=== PATIENT | male | born 1980 | race Two or more races ===

== ENCOUNTER 2024-12-21 04:52 | Inpatient (IN) | payer MEDICAID, OTHER ==
[~2024-12-21] VITALS: Ht 162.6 cm; Wt 87.3 kg
--- NOTE | 2024-12-21 05:21 | ED.PDOC ---
Altered Mental Status HPI Comments 44 year old male brought in by EMS presents to the ED with a chief complaint of ALOC onset today. Per EMS, patient was found hugging a pole by sandrine lepe and [facility] Upon EMS arrival, was on scene, patient seemed altered and was only oriented to person and . It is unknown how long the patient was outside. Patient was not sure how he got there, where he was, and was very cold to touch. BP was 132/82, BS132, HR 102, O2 sat 97% on RA. He denies any chest pain, shortness of breath, headache, blurry vision, nausea, vomiting, diarrhea. No other symptoms or modifying factors present at this time. Chief Complaint: ALOC Time Seen by MD: 05:12 Reviewed Notes: Medications, Allergies Allergies: Coded Allergies: NO KNOWN ALLERGIES (Unverified , 12/21/24) Information Source: Emergency Med Personnel Mode of Arrival: EMS Severity: Moderate Timing: Hours Duration: Since onset Prehospital treatment: None Quality: Confusion, Memory Loss Recent: None History of: None Associated Signs and Symptoms: None Past Medical History PAST MEDICAL HISTORY: Unknown Surgical History: Unknown Family History Family History: Unknown Social History Smoker: Unknown Alcohol: Unknown Drugs: Unknown Lives In: Homeless Constitutional: denies: chills, diaphoresis, fatigue, fever, malaise, sweats, weakness, others EENTM: denies: blurred vision, double vision, ear bleeding, ear discharge, ear drainage, ear pain, ear ringing, eye pain, eye redness, hearing loss, mouth pain, mouth swelling, nasal discharge, nose bleeding, nose congestion, nose pain, photophobia, tearing, throat pain, throat swelling, voice changes, others Respiratory: denies: cough, hemoptysis, orthopnea, SOB at rest, shortness of breath, SOB with excertion, stridor, wheezing, others Cardiovascular: denies: chest pain, dizzy spells, diaphoresis, Dyspnea on exertion, edema, irregular heart beat, left arm pain, lightheadedness, pa lpitations, PND, syncope, others Gastrointestinal: denies: abdomen distended, abdominal pain, blood streaked bowels, constipated, diarrhea, dysphagia, difficulty swallowing, hematemesis, melena, nausea, poor appetite, poor fluid intake, rectal bleeding, rectal pain, vomiting, others Genitourinary: denies: burning, dysuria, flank pain, frequency, hematuria, incontinence, penile discharge, penile sore, pain, testicle pain, testicle swelling, urgency, others Neurological: denies: dizziness, fainting, headache, left sided numbness, left sided weakness, numbness, paresthesia, pre-existing deficit, right sided numbness, right sided weakness, seizure, speech problems, tingling, tremors, weakness, others Musculoskeletal: denies: back pain, gout, joint pain, joint swelling, muscle pain, muscle stiffness, neck pain, others Integumetry: reports: others (cool to touch); denies: bruises, change in color, change in hair/nails, dryness, laceration, lesions, lumps, rash, wounds Allergic/Immunocompromised: denies: Difficulty Healing, Frequent Infections, Hives, Itching, others Hematologic/Lymphatic: denies: anemia, blood clots, easy bleeding, easy bruising, swollen glands, others Endocrine: denies: excessive hunger, excessive sweating, excessive thirst, excessive urination, flushing, intolerance to cold, intolerance to heat, unexplained weight gain, unexplained weight loss, others Psychiatric: denies: anxiety, bipolar disorder, depression, hopeless, panic disorder, schizophrenia, sleepless, suicidal, others Unable to Obtain due to: Altered Mental Status All Other Systems: Reviewed and Negative Physical Exam General Appearance: No Apparent Distress, Normal HEENT: Normal ENT Inspection, Pharynx Normal, TMs Normal Neck: Full Range of Motion, Non-Tender, Normal, Normal Inspection Respiratory: Chest Non-Tender, Lungs Clear, No Accessory Muscle Use, No Respiratory Distress, Normal Breath Sounds Cardiovascular: No Edema, No JVD, No Murmur, No Gallop, Normal Peripheral Pulses, Regular Rate/Rhythm Breast Exam: Deferred Gastrointestinal: No Organomegaly, Non Tender, No Pulsatile Mass, Normal Bowel Sounds, Soft Genitalia: Deferred Pelvic: Deferred Rectal: Deferred Extremities: No calf tenderness, Normal capillary refill, Normal inspection, Normal range of motion, Non-tender, No pedal edema Musculoskeletal : Apperance: Normal Neurologic: Alert, sba business development officer II-XII nml as Tested, No Motor Deficits, Normal Affect, Normal Mood, No Sensory Deficits Cerebellar Function: Normal Reflexes: Normal Skin: Dry, Normal Color, Warm Lymphatic: No Adenopathy Was a procedure done? Was a procedure done?: No Differential Diagnosis (ALOC) Differential Diagnosis: Hypoglycemia, Hypoxemia, Seizure, CVA, Mass Lesion X-Ray, Labs, Meds, VS Vital Signs Date Time Temp Pulse Resp B/P (MAP) Pulse Ox O2 Delivery O2 Flow Rate FiO2 12/21/24 08:00 72 16 131/79 (96) 95 12/21/24 07:30 69 16 95 Room Air* 0 21 12/21/24 07:30 98.0 69 16 130/78 (95) 95 98.0 12/21/24 06:00 98.1 69 15 130/78 (95) 94 98.1 12/21/24 05:03 98.0 110 14 153/100 (117) 97 Lab Test 12/21/24 05:48 Range/Units White Blood Count 9.9 4.4-10.8 10^3/uL Red Blood Count 4.15 L 4.5-5.90 10^6/uL Hemoglobin 12.0 L 13.5-17.5 g/dL Hematocrit 35.5 L 41.0-53.0 % Mean Corpuscular Volume 85.7 80.0-100.0 fL Mean Corpuscular Hemoglobin 28.9 28.0-32.0 pg Mean Corpuscular Hemoglobin Concent 33.7 32.0-36.0 g/dL Red Cell Distribution Width 18.9 H 11.8-14.3 % Platelet Count 282 140-450 10^3/uL Mean Platelet Volume 7.8 6.9-10.8 fL Neutrophils (%) (Auto) 89.1 H 37.0-80.0 % Lymphocytes (%) (Auto) 6.2 L 10.0-50.0 % Monocytes (%) (Auto) 4.4 0.0-12.0 % Eosinophils (%) (Auto) 0.2 0.0-7.0 % Basophils (%) (Auto) 0.1 0.0-2.0 % Neutrophils # (Auto) 8.8 H 1.6-8.6 10 ^3/uL Lymphocytes # (Auto) 0.6 0.4-5.4 10 ^3/uL Monocytes # (Auto) 0.4 0-1.3 10 ^3/uL Eosinophils # (Auto) 0 0-0.8 10 ^3/uL Basophils # (Auto) 0 0-0.2 10 ^3/uL Nucleated Red Blood Cells 0.0 % Sodium Level 139 136-145 mmol/L Potassium Level 4.2 3.5-5.1 mmol/L Chloride Level 105 98-107 mmol/L Carbon Dioxide Level 25 20-31 mmol/L Anion Gap 9 5-15 Blood Urea Nitrogen 35 H 9-23 mg/dL Creatinine 1.89 H 0.700-1.30 mg/dL Glomerular Filtration Rate Calc 44 >90 mL/min BUN/Creatinine Ratio 18.5 10.0-20.0 Serum Glucose 87 74-106 mg/dL Lactic Acid Level 1.9 0.4-2.0 mmol/L Calcium Level 9.6 8.7-10.4 mg/dL Total Bilirubin 0.5 0.2-1.0 mg/dL Aspartate Amino Transferase (AST) 23 13-40 U/L Alanine Aminotransferase (ALT) 28 7-40 U/L Alkaline Phosphatase 87 46-116 U/L Troponin I High Sensitivity 13 </=54 ng/L Total Protein 7.6 5.7-8.2 g/dL Albumin 4.6 3.2-4.8 g/dL Thyroid Stimulating Hormone (TSH) 4.55 0.55-4.78 uIU/mL Plasma/Serum Blood Alcohol < 3.0 <10 mg/dL Time of 1ST Reevaluation: 05:42 Reevaluation 1ST: Unchanged Patient Education/Counseling: Diagnosis, Treatment, Prognosis Family Education/Counseling: No Family Present Additional Information The following tests were ordered, and results were reviewed by me: CBC, CMP, TROP, LA W/ REFLEX, DRUG SCREEN, UA, XY CHEST, CT HEAD WITHOUT CONTRAST, BLOOD ALCOHOL Additional Information was gathered from interviewing the following independent historians: EMS I reviewed and agreed with the following test results read by other providers: XY CHEST, CT HEAD WITHOUT CONTRAST I discussed treatment and results with medical personnel and patient Departure 1 Departure Time of Disposition: 05:51 (Patient with altered mental status. We will check labs CT scan admit patient) Impression: Primary Impression: Metabolic encephalopathy Disposition: ADMITTED INPATIENT Admit to: Med Surg Condition: Serious Critical Care Note Critical Care Time?: No Stability Stability form required: No I personally scribed for MADHURI POWELL MD ([email or web address]) on 12/21/24 at 05:21. Electronically submitted by Rosa Monk ([email or web address]). I personally scribed for MADHURI POWELL MD ([email or web address]) on 12/21/24 at 05:23. Electronically submitted by Rosa Monk ([email or web address]). MADHURI POWELL MD Dec 21, 2024 05:21
[2024-12-21 06:17] LABS: Basophils # (auto) 0 10 ^3/uL (0-0.2); Basophils % (auto) 0.1 % (0.0-2.0); Eosinophils # (auto) 0 10 ^3/uL (0-0.8); Eosinophils % (auto) 0.2 % (0.0-7.0); Hematocrit 35.5 % (41.0-53.0); Lymphocytes # (auto) 0.6 10 ^3/uL (0.4-5.4); Lymphocytes % (auto) 6.2 % (10.0-50.0); Mean Corpuscular Hemoglobin 28.9 pg (28.0-32.0); Mean Corpuscular Hgb Conc. 33.7 g/dL (32.0-36.0); Mean Corpuscular Volume 85.7 fL (80.0-100.0); Monocytes # (auto) 0.4 10 ^3/uL (0-1.3); Monocytes % (auto) 4.4 % (0.0-12.0); Neutrophils # (auto) 8.8 10 ^3/uL (1.6-8.6); Neutrophils % (auto) 89.1 % (37.0-80.0); Platelet Count (auto) 282 10^3/uL (140-450); Red Blood Cells 4.15 10^6/uL (4.5-5.90); Red Cell Distribution Width 18.9 % (11.8-14.3); White Blood Cell 9.9 10^3/uL (4.4-10.8)
[2024-12-21 06:35] LABS: Alanine Aminotransferase 28 U/L (7-40); Alkaline Phosphatase 87 U/L (46-116); Anion Gap 9 (5-15); Aspartate Aminotransferase 23 U/L (13-40); BUN/Creatinine Ratio 18.5 (10.0-20.0); Calcium 9.6 mg/dL (8.7-10.4); Carbon Dioxide 25 mmol/L (20-31); Chloride 105 mmol/L (98-107); Glucose 87 mg/dL (74-106); Potassium 4.2 mmol/L (3.5-5.1); Sodium 139 mmol/L (136-145)
[2024-12-21 06:36] LABS: Albumin 4.6 g/dL (3.2-4.8); Bilirubin, Total 0.5 mg/dL (0.2-1.0); Blood Alcohol < 3.0 mg/dL (<10); Blood Urea Nitrogen 35 mg/dL (9-23); Total Protein 7.6 g/dL (5.7-8.2)
--- NOTE | 2024-12-21 06:53 | DVH ---
EXAM: CT HEAD WITHOUT CONTRAST INDICATION: ams TECHNIQUE: CT of the head without intravenous contrast. Coronal and sagittal reformatted images are submitted. Radiation Dose : 1. Head: CT Dose: CTDI volume is 63.96 mGy. Dose-length product is 1082.64 mGy*cm The dose indicators for CT are the volume Computed Tomography (CT) Dose Index (CTDIvol) and the Dose Length Product (DLP), and are measured in units of mGy and mGy-cm, respectively. These indicators are not patient dose, but values generated from the CT scanner acquisition factors. The report includes radiation exposure data for exposures received during this examination. All CT scans at this medical facility are performed using dose modulation techniques as appropriate to a performed exam including the following: Automated exposure control was utilized; adjustment of the MA and/or KV according to patient size; and use of iterative reconstruction technique. COMPARISON: None FINDINGS: There is no evidence of acute intracranial hemorrhage, extra-axial collection, mass effect, midline s hift, herniation or hydrocephalus. There are periventricular and subcortical hypodensities, nonspecific, but likely reflecting sequelae of chronic microvascular ischemic changes. Chronic subcortical infarct in the deep frontal lobe periv entricular white matter. Chronic left basal ganglia infarct. The ventricles, sulci and cisterns are age appropriate. The olivares-white differentiation is intact. The visualized paranasal sinuses and mastoid air cells are clear. No depressed calvarial fracture. The surrounding soft tissues are unremarkable. IMPRESSION: 1. No evidence of acute intracranial abnormality.
--- NOTE | 2024-12-21 06:55 | DVH ---
CHEST RADIOGRAPH Indication: ams Technique: Single frontal view of the chest was obtained Comparison: None FINDINGS: Lines and Tubes: None Lungs: No focal consolidation. Pleura: No effusion. No pneumothorax. Cardiomediastinal contours: Unremarkable Bones: No acute osseous abnormality. IMPRESSION: 1. No acute cardiopulmonary disease.
[2024-12-21 07:30] VITALS: PULSE 69; RESP 16; O2SAT 95
[2024-12-21] MEDS ORDERED: ONDANSETRON HCL 4 MG/2 ML VIAL IV PRN (09:30)
[2024-12-21] MEDS ORDERED: NITROGLYCERIN 0.4 MG SL TAB SL PRN (09:30)
[2024-12-21] MEDS ORDERED: MORPHINE SULFATE INJ 2 MG/ml SYRG IV PRN (09:30)
[2024-12-21] MEDS ORDERED: DOCUSATE SOD 100 MG CAP PO PRN (09:30)
[2024-12-21] MEDS: SODIUM CHLORIDE 0.9% 1,000 ML IV ONE (09:59)
[2024-12-21] MEDS: ENOXAPARIN SOD 40 MG/0.4 ML SYRINGE SC SCH (10:55)
--- NOTE | 2024-12-21 18:52 | DVHHP2 ---
History of Present Illness Reason for Visit: Confusion History of Present Illness 44-year-old male past medical history per nursing got information from family member who is at the bedside they stated he was at his baseline mental state on my morning exam but they state he has a history HIV kidney problems heart problems they are not really sure with the diagnosis of those issues are in no surgical history according to the ED records patient was found altered outside hugging pull by [facility] of saw him and brought him in because they felt he was altered he was outside in his diaper. According to the family patient lives in a friend's home and a room and some how he got out and he was found in his streets in his diaper in his showed on. According to the family patient is at his baseline when they speaking with him. They states he pretty much his stares in space and he was not able to answer questions appropriately. They states he got in this state mental illness because he has HIV. And chronic meth use They state he is only alert to name. On my exam patient states he do not remember what happened to provider then he is stares in space. When evaluating patient's labs and imaging hemoglobin was 12.0 35 point five creatinine is slightly elevated at 1.89 and 35 troponin was negative alcohol level was negative chest x-ray was normal CT scan of the brain was normal. With these findings we will admit patient we will ask social and human services assistant for assistance with discharge planning. Since patient was found wandering he might need to go in a different location for his safety. Unsure if patient has been taking medication for his HIV family could not provide that information Past Medical History HIV unknown how long patient had illness know if he is taking his medication family unsure kidney problems and heart problems do not know the full diagnosis of his medical problems per family Past Surgical History Denies surgical history per family Family History Unable to assess due to current mental status Past Social History Unable to assess due to current mental status but patient does a history of meth abuse Review of Systems Review of Systems Unable to assess ROS due to current mental status Allergies: Coded Allergies: NO KNOWN ALLERGIES (Unverified , 12/21/24) Medications Current Medications Medications Dose Ordered Sig/Willem Route Start Time Stop Time Status Last Admin Dose Admin Ondansetron HCl 4 mg Q4HP PRN IV 12/21/24 09:30 Docusate Sodium 100 mg BIDPRN PRN PO 12/21/24 09:30 Enoxaparin Sodium 40 mg DAILY SC 12/21/24 10:00 12/21/24 10:55 40 MG Morphine Sulfate 2 mg Q4HPRN PRN IV 12/21/24 09:30 Nitroglycerin 0.4 mg Q5MINP PRN SL 12/21/24 09:30 Exam Vital Signs Vital Signs Date Time Temp Pulse Resp B/P (MAP) Pulse Ox O2 Delivery O2 Flow Rate FiO2 12/21/24 18:00 86 18 153/82 (105) 94 12/21/24 07:30 Room Air* 0 21 12/21/24 07:30 98.0 98.0 General Appearance: Alert, Other (Just to name) HEENT: Atraumatic, PERRLA, EOMI, Mucous membr. moist/pink Respiratory: Clear to auscultation, Normal air movement Cardiovascular: Regular rate, Normal S1, Normal S2, No murmurs Abdominal: Normal bowel sounds, Soft, No tenderness, No hepatospenomegaly, No m asses Extremities: No clubbing, No cyanosis, No edema, Normal pulses, No tenderness/swelling Skin: No rashes, No breakdown, No significant lesion Neuro: Other (Neuro nonfocal) Psych/Mental Status: Other (Flat affect on my exam) Labs/Xrays CT scan of the brain unremarkable Chest x-ray unremarkable I reviewed labs, imaging CT scan abdomen pelvis, EKG and all diagnostic studies on this patient from ED records and the medical chart Labs Test 12/21/24 10:00 12/21/24 05:48 Range/Units Mean Platelet Volume 7.8 6.9-10.8 fL Neutrophils # (Auto) 8.8 H 1.6-8.6 10 ^3/uL Lymphocytes # (Auto) 0.6 0.4-5.4 10 ^3/uL Monocytes # (Auto) 0.4 0-1.3 10 ^3/uL Eosinophils # (Auto) 0 0-0.8 10 ^3/uL Basophils # (Auto) 0 0-0.2 10 ^3/uL Sodium Level 139 136-145 mmol/L Potassium Level 4.2 3.5-5.1 mmol/L Chloride Level 105 98-107 mmol/L Carbon Dioxide Level 25 20-31 mmol/L Anion Gap 9 5-15 Blood Urea Nitrogen 35 H 9-23 mg/dL Creatinine 1.89 H 0.700-1.30 mg/dL Glomerular Filtration Rate Calc 44 >90 mL/min BUN/Creatinine Ratio 18.5 10.0-20.0 Serum Glucose 87 74-106 mg/dL Lactic Acid Level 1.9 0.4-2.0 mmol/L Calcium Level 9.6 8.7-10.4 mg/dL Total Bilirubin 0.5 0.2-1.0 mg/dL Aspartate Amino Transferase (AST) 23 13-40 U/L Alanine Aminotransferase (ALT) 28 7-40 U/L Alkaline Phosphatase 87 46-116 U/L Troponin I High Sensitivity 13 </=54 ng/L Total Protein 7.6 5.7-8.2 g/dL Albumin 4.6 3.2-4.8 g/dL Thyroid Stimulating Hormone (TSH) 4.55 0.55-4.78 uIU/mL Plasma/Serum Blood Alcohol < 3.0 <10 mg/dL Assessment/Plan Assessment/Plan Acute metabolic versus toxic encephalopathy per family at baseline only alert to self due to chronic meth use in the past that caused mental declined CT scan of the brain unremarkable Chest x-ray unremarkable Order UA, UDS, TSH, RPR Alcohol level normal Patient has a history HIV so order CD4 count follow up results We will need social and human services assistant to assist with discharge planning possibly we will need a safer location on discharge since patient was found wandering the streets Chronic HIV unknown history about his illness he is currently on medication Order CD4 count follow up results Can consider ID consult No fever so no need for further workup for meningitis Chronic problems Kidney problems likely chronic CKD order IV hydration 1 L Heart problems troponin found to be negative EKG no STEMI fen/ppx Diet for now IV fluids No GI prophylaxis since no history occurs or GI bleed SCDs Lovenox Plan we will admit to medicine ask for social and human services assistant for assistance with discharge planning, patient currently not safe for discharge Plan discussed with: Other (Information taken from nursing in the ED records) My Orders Orders - BILL THOMSON DNP Procedure Category Date Status Time Admit ADMIT 12/21/24 Transmitted 09:25 Allergies LAXMI 12/21/24 In Process 09:25 Code Status CODE 12/21/24 Transmitted 09:25 Ondansetron Hcl PHA 12/21/24 In Process (Zofran) 09:30 Docusate Sodium PHA 12/21/24 In Process Capsule (Colace 09:30 Enoxaparin Sodium PHA 12/21/24 In Process (Lovenox) 10:00 Complete Blood Count LAB 12/22/24 Verified 04:00 Comprehensive LAB 12/22/24 Verified Metabolic Panel 04:00 Cardiac DIET 12/21/24 Transmitted Diet-2gna,Lofat,Lochol Breakfast Condition: Stable LAXMI 12/21/24 In Process 09:25 BRP LAXMI 12/21/24 In Process 09:25 Morphine Sulfate PHA 12/21/24 In Process Injection 09:30 Sequential LAXMI 12/21/24 In Process Compression Device Nitroglycerin PHA 12/21/24 In Process Sublingual (Ntrostat 09:30 Stat Ekg For Chest LAXMI 12/21/24 In Process Pain 09:25 Notify Of Changes LAXMI 12/21/24 In Process From Base 09:25 Retail Route Supervisor For LAXMI 12/21/24 In Process 24 Hours 09:25 Emergency Dysrhythmia LAXMI 12/21/24 In Process Protocol 09:25 Rhythm Strips Once LAXMI 12/21/24 In Process Every Shift 09:25 Oxygen By Nasal RT 12/21/24 Transmitted Cannula 09:25 Cd4/Cd8 Ratio Profile LAB 12/21/24 In Process 09:25 Urine Sodium LAB 12/21/24 Logged 09:25 Urine Creatinine LAB 12/21/24 Logged 09:25 RPR LAB 12/21/24 In Process 09:25 Date of Service: Dec 21, 2024 Billing Provider: BILL THOMSON DNP Common Visit Codes: [id number] INP/OBS CARE (HIGH) BILL THOMSON DNP Dec 21, 2024 18:52
[2024-12-21 19:40] VITALS: PULSE 75; RESP 15; O2SAT 95
[2024-12-22 06:12] LABS: Basophils # (auto) 0 10 ^3/uL (0-0.2); Basophils % (auto) 0.4 % (0.0-2.0); Eosinophils # (auto) 0.1 10 ^3/uL (0-0.8); Eosinophils % (auto) 1.9 % (0.0-7.0); Hematocrit 30.9 % (41.0-53.0); Hemoglobin 10.6 g/dL (13.5-17.5); Lymphocytes # (auto) 1.1 10 ^3/uL (0.4-5.4); Lymphocytes % (auto) 22.5 % (10.0-50.0); Mean Corpuscular Hemoglobin 29.5 pg (28.0-32.0); Mean Corpuscular Hgb Conc. 34.2 g/dL (32.0-36.0); Mean Corpuscular Volume 86.2 fL (80.0-100.0); Monocytes # (auto) 0.4 10 ^3/uL (0-1.3); Monocytes % (auto) 8.3 % (0.0-12.0); Neutrophils # (auto) 3.3 10 ^3/uL (1.6-8.6); Neutrophils % (auto) 66.9 % (37.0-80.0); Platelet Count (auto) 233 10^3/uL (140-450); Red Blood Cells 3.59 10^6/uL (4.5-5.90); White Blood Cell 4.9 10^3/uL (4.4-10.8)
[2024-12-22 06:38] LABS: Alanine Aminotransferase 23 U/L (7-40); Alkaline Phosphatase 76 U/L (46-116); Anion Gap 7 (5-15); BUN/Creatinine Ratio 16.4 (10.0-20.0); Calcium 9.2 mg/dL (8.7-10.4); Carbon Dioxide 25 mmol/L (20-31); Glucose 81 mg/dL (74-106); Potassium 3.7 mmol/L (3.5-5.1); Sodium 142 mmol/L (136-145)
[2024-12-22 06:39] LABS: Albumin 3.5 g/dL (3.2-4.8)
[2024-12-22 06:40] LABS: Aspartate Aminotransferase 43 U/L (13-40); Blood Urea Nitrogen 25 mg/dL (9-23); Chloride 110 mmol/L (98-107); Total Protein 6.2 g/dL (5.7-8.2)
[2024-12-22 07:06] LABS: Basos 0 % (Not Estab.); Eos 0 % (Not Estab.); Hemoglobin 11.7 g/dL (13.0-17.7); Immature Granulocytes (Abs) 0 x10E3/uL (0.0-0.1); Lymphs 14 % (Not Estab.); Lymphs (Absolute) 1.2 x10E3/uL (0.7-3.1); MCHC 32.5 g/dL (31.5-35.7); MCV 89 fL (79-97); Monocytes 6 % (Not Estab.); Monocytes (Absolute) 0.5 x10E3/uL (0.1-0.9); Neutrophils 80 % (Not Estab.); Neutrophils (Absolute) 6.8 x10E3/uL (1.4-7.0); Platelets 288 x10E3/uL (150-450); RBC 4.04 x10E6/uL (4.14-5.80); RDW 18.2 % (11.6-15.4); WBC 8.5 x10E3/uL (3.4-10.8)
[2024-12-22 10:10] VITALS: PULSE 75; RESP 19; O2SAT 97
--- NOTE | 2024-12-22 12:46 | DVHPN2 ---
Reviewed: Care Plan, H&P, Labs, Medications, Previous Orders, Radiology Changes from previous H/P or p: No Changes Objective Vitals Vital Signs Date Time Temp Pulse Resp B/P (MAP) Pulse Ox O2 Delivery O2 Flow Rate FiO2 12/22/24 12:08 97.6 69 13 153/91 (111) 98 97.6 12/22/24 10:10 Room Air* 0 21 Medications Current Medications Medications Dose Ordered Sig/Willem Route Start Time Stop Time Status Last Admin Dose Admin Ondansetron HCl 4 mg Q4HP PRN IV 12/21/24 09:30 Docusate Sodium 100 mg BIDPRN PRN PO 12/21/24 09:30 Enoxaparin Sodium 40 mg DAILY SC 12/21/24 10:00 12/22/24 07:53 40 MG Morphine Sulfate 2 mg Q4HPRN PRN IV 12/21/24 09:30 Nitroglycerin 0.4 mg Q5MINP PRN SL 12/21/24 09:30 Laboratory Results Laboratory Tests 12/22/24 05:41 Chemistry Test 12/22/24 05:41 Albumin 3.5 g/dL (3.2-4.8) Calcium Level 9.2 mg/dL (8.7-10.4) Total Protein 6.2 g/dL (5.7-8.2) LFT Test 12/22/24 05:41 Alanine Aminotransferase (ALT) 23 U/L (7-40) Alkaline Phosphatase 76 U/L (46-116) Aspartate Amino Transferase (AST) 43 U/L (13-40) H Total Bilirubin 1.0 mg/dL (0.2-1.0) Labs and/or images reviewed: Labs reviewed by me, Image(s) reviewed by me Assessment/Plan Assessment/Plan Acute metabolic encephalopathy unknown etiology CT head negative Acute dehydration: IV fluids History of methamphetamine abuse: We will check urine drug screen Blood alcohol level negative Questionable history of HIV Plan discussed with: Patient My Orders Orders - PATRICIA ARGUETA MD Procedure Category Date Status Time Drug Screen LAB 12/22/24 Transmitted 12:42 Communication Order ORDERS 12/22/24 Transmitted 12:42 NS PHA 12/22/24 Verified 12:45 Date of Service: Dec 22, 2024 Billing Provider: PATRICIA ARGUETA MD Common Visit Codes: [id number] INP/OBS CARE(HIGH) PATRICIA ARGUETA MD Dec 22, 2024 12:46
[2024-12-22 13:22] LABS: Urine Bacteria None Seen /hpf (None Seen)
[2024-12-22 13:55] LABS: Creatinine, Urine 131.41 mg/dL (30.0-125.0)
[2024-12-22 13:59] LABS: Urine Blood Negative /uL (Negative); Urine Clarity Clear (Clear); Urine Color Light-Yellow (Yellow); Urine Mucus FEW (None Seen); Urine Protein, UAD TRACE (Negative); Urine Specific Gravity 1.019 (1.001-1.035); Urine Squamous Epithelial Cell None Seen /hpf (<5); Urine Urobilinogen Normal (Negative); Urine WBC 2 /HPF (0-3); Urine pH 5.5 (5.0-9.0)
[2024-12-22 14:06] LABS: Amphetamine Screen, Urine Neg (NEGATIVE); Barbiturate Scree,Urine Neg (NEGATIVE); Benzodiazephine Screen, Urine Neg (NEGATIVE); Cannabinoid Screen, Urine Neg (NEGATIVE); Cocaine Screen, Urine Neg (NEGATIVE); Opiate Scree,Urine Neg (NEGATIVE); Phencyclidine Screen, Urine Neg (NEGATIVE)
[2024-12-22] MEDS: SODIUM CHLORIDE 0.9% 1,000 ML IV SCH (14:34)
[2024-12-22 16:06] LABS: % CD 4 Pos Lymph 36.6 % (30.8-58.5); % CD 8 Pos Lymph 26.4 % (12.0-35.5); Absolute CD 4 Helper 439 /uL (359-1519); CD4/CD8 Ratio 1.39 (0.92-3.72)
[2024-12-22 16:25] VITALS: BP 164/96; PULSE 69; RESP 18; TEMP 98.3; O2SAT 99
[2024-12-22 16:35] VITALS: BP 164/96; PULSE 65; RESP 18; TEMP 98.3; O2SAT 99
[2024-12-22] MEDS: hydrALAZINE HCL 20 MG/ML VL IV ONE (18:33)
[2024-12-22 19:08] VITALS: BP 146/94; PULSE 81
[2024-12-22 20:00] VITALS: PULSE 84; PULSE 86; RESP 19; O2SAT 97
[2024-12-22 21:00] VITALS: BP 139/91; PULSE 84; RESP 19; TEMP 99; O2SAT 97
[2024-12-23] VITALS (8 sets, daily range): BP systolic 135–160; BP diastolic 83–104; PULSE 64–80; RESP 16–19; TEMP 98.5–98.9; O2SAT 93–98
[2024-12-23] MEDS ORDERED: BICT1TAB4 PO (07:35)
[2024-12-23] MEDS ORDERED: ATEN-60 PO (07:35)
--- NOTE | 2024-12-23 09:50 | DVHPN2 ---
Reviewed: Care Plan, H&P, Labs, Medications, Previous Orders, Radiology Changes from previous H/P or p: No Changes Objective Vitals Vital Signs Date Time Temp Pulse Resp B/P (MAP) Pulse Ox O2 Delivery O2 Flow Rate FiO2 12/23/24 08:42 98.6 78 16 135/91 (106) 94 98.6 12/22/24 20:00 Room Air* 0 21 Intake/Output Intake and Output 12/23/24 07:00 Intake Total 800 ml Output Total 1400 ml Balance -600 ml Intake Oral 500 ml IV Total 300 ml Output Urine Total 1400 ml Medications Current Medications Medications Dose Ordered Sig/Willem Route Start Time Stop Time Status Last Admin Dose Admin Ondansetron HCl 4 mg Q4HP PRN IV 12/21/24 09:30 Docusate Sodium 100 mg BIDPRN PRN PO 12/21/24 09:30 Enoxaparin Sodium 40 mg DAILY SC 12/21/24 10:00 12/23/24 09:20 40 MG Morphine Sulfate 2 mg Q4HPRN PRN IV 12/21/24 09:30 Nitroglycerin 0.4 mg Q5MINP PRN SL 12/21/24 09:30 Sodium Chloride 1,000 ml @ 150 mls/hr Q6H40M IV 12/22/24 12:45 12/23/24 06:17 150 MLS/HR Laboratory Results Laboratory Tests 12/22/24 05:41 Urinalysis Test 12/22/24 12:11 Urine Color Light-yellow (Yellow) Urine Clarity Clear (Clear) Urine pH 5.5 (5.0-9.0) Urine Specific [place] 1.019 (1.001-1.035) Urine Protein Trace (Negative) H Urine Ketones Negative (Negative) Urine Blood Negative /uL (Negative) Urine Nitrite Negative (Negative) Urine Bilirubin Negative (Negative) Urine Urobilinogen Normal mg/dL (Negative) Urine Leukocyte Esterase Negative /uL (Negative) Urine RBC 24 /hpf (0 - 3) Urine Microscopic WBC 2 /HPF (0-3) Urine Squamous Epithelial Cells None seen /hpf (<5) Urine Uric Acid Crystals Mod /hpf (None Seen) Urine Bacteria None seen /hpf (None Seen) Urine Mucus Few (None Seen) Urine Creatinine 131.41 mg/dL (30.0-125.0) H Urine Sodium 132 mmol/L (40-220) Urine Glucose Normal mg/dL (Normal) Labs and/or images reviewed: Labs reviewed by me, Image(s) reviewed by me Assessment/Plan Assessment/Plan Acute metabolic encephalopathy unknown etiology CT head negative Acute dehydration: IV fluids History of methamphetamine abuse: Urine drug screen negative CT head negative Blood alcohol level negative Questionable history of HIV Patient is more alert today Plan discussed with: Patient My Orders Orders - PATRICIA ARGUETA MD Procedure Category Date Status Time Communication Order ORDERS 12/22/24 Transmitted 12:42 Sodium Chloride 0.9% PHA 12/22/24 In Process 12:45 Date of Service: Dec 23, 2024 Billing Provider: PATRICIA ARGUETA MD Common Visit Codes: [id number] INP/OBS CARE(HIGH) PATRICIA ARGUETA MD Dec 23, 2024 09:50
[2024-12-24] VITALS (7 sets, daily range): BP systolic 144–164; BP diastolic 88–108; PULSE 67–84; RESP 17–20; TEMP 98–98.9; O2SAT 91–97
--- NOTE | 2024-12-24 12:55 | DVHPN2 ---
Reviewed: Care Plan, H&P, Labs, Medications, Previous Orders, Radiology Changes from previous H/P or p: No Changes Objective Vitals Vital Signs Date Time Temp Pulse Resp B/P (MAP) Pulse Ox O2 Delivery O2 Flow Rate FiO2 12/24/24 08:54 98.3 75 20 162/100 (120) 95 98.3 12/24/24 08:00 Room Air* 0 21 Intake/Output Intake and Output 12/24/24 07:00 Intake Total 2440 ml Output Total 1900 ml Balance 540 ml Intake Oral 1440 ml IV Total 1000 ml Output Urine Total 1900 ml # Bowel Movements 2 Medications Current Medications Medications Dose Ordered Sig/Willem Route Start Time Stop Time Status Last Admin Dose Admin Ondansetron HCl 4 mg Q4HP PRN IV 12/21/24 09:30 Docusate Sodium 100 mg BIDPRN PRN PO 12/21/24 09:30 Enoxaparin Sodium 40 mg DAILY SC 12/21/24 10:00 12/24/24 09:32 40 MG Morphine Sulfate 2 mg Q4HPRN PRN IV 12/21/24 09:30 Nitroglycerin 0.4 mg Q5MINP PRN SL 12/21/24 09:30 Sodium Chloride 1,000 ml @ 150 mls/hr Q6H40M IV 12/22/24 12:45 12/24/24 06:00 150 MLS/HR Laboratory Results Laboratory Tests 12/22/24 05:41 Urinalysis Test 12/22/24 12:11 Urine Color Light-yellow (Yellow) Urine Clarity Clear (Clear) Urine pH 5.5 (5.0-9.0) Urine Specific [place] 1.019 (1.001-1.035) Urine Protein Trace (Negative) H Urine Ketones Negative (Negative) Urine Blood Negative /uL (Negative) Urine Nitrite Negative (Negative) Urine Bilirubin Negative (Negative) Urine Urobilinogen Normal mg/dL (Negative) Urine Leukocyte Esterase Negative /uL (Negative) Urine RBC 24 /hpf (0 - 3) Urine Microscopic WBC 2 /HPF (0-3) Urine Squamous Epithelial Cells None seen /hpf (<5) Urine Uric Acid Crystals Mod /hpf (None Seen) Urine Bacteria None seen /hpf (None Seen) Urine Mucus Few (None Seen) Urine Creatinine 131.41 mg/dL (30.0-125.0) H Urine Sodium 132 mmol/L (40-220) Urine Glucose Normal mg/dL (Normal) Microbiology Microbiology Date/Time Source Procedure Growth Status 12/22/24 12:11 Urine - [place] Urine Culture - Final Complete Labs and/or images reviewed: Labs reviewed by me, Image(s) reviewed by me Assessment/Plan Assessment/Plan Acute metabolic encephalopathy unknown etiology CT head negative Acute dehydration: IV fluids History of methamphetamine abuse: Urine drug screen negative CT head negative Blood alcohol level negative Questionable history of HIV Patient is more alert today Plan discussed with: Patient Date of Service: Dec 24, 2024 Billing Provider: PATRICIA ARGUETA MD Common Visit Codes: [id number] INP/OBS CARE(HIGH) PATRICIA ARGUETA MD Dec 24, 2024 12:55
[2024-12-25 01:12] VITALS: BP 159/111; PULSE 79; RESP 17; TEMP 98.3; O2SAT 96
[2024-12-25] MEDS: cloNIDine HCL 0.1 MG TAB PO ONE (01:36)
[2024-12-25 05:00] VITALS: BP_SYST 126; BP_SYST 145; BP_DIAS 57; BP_DIAS 90; PULSE 68; PULSE 96; RESP 17; RESP 18; TEMP 98.1; TEMP 98.2; O2SAT 96
[2024-12-25 08:00] VITALS: PULSE 59; PULSE 79; RESP 18
[2024-12-25 08:49] VITALS: BP 144/90; PULSE 79; RESP 18; TEMP 99.5; O2SAT 92
--- NOTE | 2024-12-25 12:54 | DVHPN2 ---
Reviewed: Care Plan, H&P, Labs, Medications, Previous Orders, Radiology Changes from previous H/P or p: No Changes Objective Vitals Vital Signs Date Time Temp Pulse Resp B/P (MAP) Pulse Ox O2 Delivery O2 Flow Rate FiO2 12/25/24 08:49 99.5 79 18 144/90 (108) 92 99.5 12/25/24 08:00 Room Air* 0 21 Intake/Output Intake and Output 12/25/24 07:00 Intake Total 740 ml Output Total 1650 ml Balance -910 ml Intake Oral 740 ml Output Urine Total 1650 ml Medications Current Medications Medications Dose Ordered Sig/Willem Route Start Time Stop Time Status Last Admin Dose Admin Ondansetron HCl 4 mg Q4HP PRN IV 12/21/24 09:30 Docusate Sodium 100 mg BIDPRN PRN PO 12/21/24 09:30 Enoxaparin Sodium 40 mg DAILY SC 12/21/24 10:00 12/25/24 09:11 40 MG Morphine Sulfate 2 mg Q4HPRN PRN IV 12/21/24 09:30 Nitroglycerin 0.4 mg Q5MINP PRN SL 12/21/24 09:30 Laboratory Results Laboratory Tests 12/22/24 05:41 Urinalysis Test 12/22/24 12:11 Urine Color Light-yellow (Yellow) Urine Clarity Clear (Clear) Urine pH 5.5 (5.0-9.0) Urine Specific [place] 1.019 (1.001-1.035) Urine Protein Trace (Negative) H Urine Ketones Negative (Negative) Urine Blood Negative /uL (Negative) Urine Nitrite Negative (Negative) Urine Bilirubin Negative (Negative) Urine Urobilinogen Normal mg/dL (Negative) Urine Leukocyte Esterase Negative /uL (Negative) Urine RBC 24 /hpf (0 - 3) Urine Microscopic WBC 2 /HPF (0-3) Urine Squamous Epithelial Cells None seen /hpf (<5) Urine Uric Acid Crystals Mod /hpf (None Seen) Urine Bacteria None seen /hpf (None Seen) Urine Mucus Few (None Seen) Urine Creatinine 131.41 mg/dL (30.0-125.0) H Urine Sodium 132 mmol/L (40-220) Urine Glucose Normal mg/dL (Normal) Microbiology Microbiology Date/Time Source Procedure Growth Status 12/22/24 12:11 Urine - [place] Urine Culture - Final Complete Labs and/or images reviewed: Labs reviewed by me, Image(s) reviewed by me Assessment/Plan Assessment/Plan Acute metabolic encephalopathy resolved CT head negative Acute dehydration: Resolved History of methamphetamine abuse: Urine drug screen negative CT head negative Blood alcohol level negative Patient is alert awake oriented x3 and engaging in conversation, stable vital signs, ambulating Plan discussed with: Patient Date of Service: Dec 25, 2024 Billing Provider: PATRICIA ARGUETA MD Common Visit Codes: [id number] INP/OBS CARE(HIGH) PATRICIA ARGUETA MD Dec 25, 2024 12:54
--- NOTE | 2024-12-25 12:59 | DVHDS2 ---
Discharge Summary Date of Admission Dec 21, 2024 at 09:25 Date of Discharge: Dec 25, 2024 Admitting Diagnosis Altered mental status Wounds: None Labs/Diagnostic Data: Laboratory Results Test 12/22/24 12:11 12/22/24 05:41 12/21/24 10:00 12/21/24 05:48 Urine Color Light-yellow (Yellow) Urine Clarity Clear (Clear) Urine pH 5.5 (5.0-9.0) Urine Specific [place] 1.019 (1.001-1.035) Urine Protein Trace (Negative) Urine Ketones Negative (Negative) Urine Blood Negative /uL (Negative) Urine Nitrite Negative (Negative) Urine Bilirubin Negative (Negative) Urine Urobilinogen Normal mg/dL (Negative) Urine Leukocyte Esterase Negative /uL (Negative) Urine RBC 24 /hpf (0 - 3) Urine Microscopic WBC 2 /HPF (0-3) Urine Squamous Epithelial Cells None seen /hpf (<5) Urine Uric Acid Crystals Mod /hpf (None Seen) Urine Bacteria None seen /hpf (None Seen) Urine Mucus Few (None Seen) Urine Creatinine 131.41 mg/dL (30.0-125.0) Urine Sodium 132 mmol/L (40-220) Urine Glucose Normal mg/dL (Normal) Urine Opiates Screen Neg (NEGATIVE) Urine Fentanyl Screen Neg (NEGATIVE) Urine Barbiturates Screen Neg (NEGATIVE) Urine Phencyclidine Screen Neg (NEGATIVE) Urine Amphetamines Screen Neg (NEGATIVE) Urine Benzodiazepines Screen Neg (NEGATIVE) Urine Cocaine Screen Neg (NEGATIVE) Urine Cannabinoids Screen Neg (NEGATIVE) White Blood Count 4.9 10^3/uL (4.4-10.8) Red Blood Count 3.59 10^6/uL (4.5-5.90) Hemoglobin 10.6 g/dL (13.5-17.5) Hematocrit 30.9 % (41.0-53.0) Mean Corpuscular Volume 86.2 fL (80.0-100.0) Mean Corpuscular Hemoglobin 29.5 pg (28.0-32.0) Mean Corpuscular Hemoglobin Concent 34.2 g/dL (32.0-36.0) Red Cell Distribution Width 19.0 % (11.8-14.3) Platelet Count 233 10^3/uL (140-450) Mean Platelet Volume 7.7 fL (6.9-10.8) Neutrophils (%) (Auto) 66.9 % (37.0-80.0) Lymphocytes (%) (Auto) 22.5 % (10.0-50.0) Monocytes (%) (Auto) 8.3 % (0.0-12.0) Eosinophils (%) (Auto) 1.9 % (0.0-7.0) Basophils (%) (Auto) 0.4 % (0.0-2.0) Neutrophils # (Auto) 3.3 10 ^3/uL (1.6-8.6) Lymphocytes # (Auto) 1.1 10 ^3/uL (0.4-5.4) Monocytes # (Auto) 0.4 10 ^3/uL (0-1.3) Eosinophils # (Auto) 0.1 10 ^3/uL (0-0.8) Basophils # (Auto) 0 10 ^3/uL (0-0.2) Nucleated Red Blood Cells 0.0 % Sodium Level 142 mmol/L (136-145) Potassium Level 3.7 mmol/L (3.5-5.1) Chloride Level 110 mmol/L (98-107) Carbon Dioxide Level 25 mmol/L (20-31) Anion Gap 7 (5-15) Blood Urea Nitrogen 25 mg/dL (9-23) Creatinine 1.52 mg/dL (0.700-1.30) Glomerular Filtration Rate Calc 57 mL/min (>90) BUN/Creatinine Ratio 16.4 (10.0-20.0) Serum Glucose 81 mg/dL (74-106) Calcium Level 9.2 mg/dL (8.7-10.4) Total Bilirubin 1.0 mg/dL (0.2-1.0) Aspartate Amino Transferase (AST) 43 U/L (13-40) Alanine Aminotransferase (ALT) 23 U/L (7-40) Alkaline Phosphatase 76 U/L (46-116) Total Protein 6.2 g/dL (5.7-8.2) Albumin 3.5 g/dL (3.2-4.8) Absolute Neutrophils (auto) 6.8 x10E3/uL (1.4-7.0) Absolute Lymphocytes (auto) 1.2 x10E3/uL (0.7-3.1) Absolute Monocytes (auto) 0.5 x10E3/uL (0.1-0.9) Absolute Eosinophils (auto) 0.0 x10E3/uL (0.0-0.4) Absolute Basophils (auto) 0.0 x10E3/uL (0.0-0.2) Immature Granulocytes % 0 % (Not Estab.) Immature Granulocytes # 0 x10E3/uL (0.0-0.1) Immature Blood Cells (.) Hematology Comments (.) Percent CD4 Cells 36.6 % (30.8-58.5) Absolute CD4 Count 439 /uL (359-1519) T-Lymphocyte CD4/CD8 Ratio 1.39 (0.92-3.72) Percent CD8 Cells 26.4 % (12.0-35.5) Absolute CD8 Count 317 /uL (109-897) RPR Titer Additional Testing 1:4 titer (NonRea<1:1) Lactic Acid Level 1.9 mmol/L (0.4-2.0) Troponin I High Sensitivity 13 ng/L (</=54) Thyroid Stimulating Hormone (TSH) 4.55 uIU/mL (0.55-4.78) Plasma/Serum Blood Alcohol < 3.0 mg/dL (<10) Other Laboratory Tests 12/22/24 05:41 Brief Hx & Hospital Course: 44-year-old male with a history of history of methamphetamine abuse no other medical issues brought in for altered mental status and admitted. Patient was found to be in acute dehydration given IV fluids which has resolved CT head was negative drug screen was negative blood alcohol level negative at the time of discharge patient is alert awake oriented x3 ambulating stable vital signs and willing to be discharged home. His sister is going to pick him up Consults/Reason for consult None Operations or Procedures CT head Condition at Discharge: Fair Final Diagnosis/Problems List Acute metabolic encephalopathy resolved CT head negative Acute dehydration: Resolved History of methamphetamine abuse: Urine drug screen negative CT head negative Blood alcohol level negative Discharge Disposition: Home Discharge Instruct/Medications Diet: Regular Activity: Light activity Follow Up/Referral: Follow up with your primary Dr Medications: None 35 (Time taken for discharge summary 35 minutes) Discharge Statement: "Patient was advised to return to the ER or call 911 if any headaches, dizziness, shortness of breath, chest pain, abdominal pain, bleeding, fevers, or worsening of medical condition. Patient was counseled about treatment plan, medications, possible side effects, patientverbalized understanding. All questions were answered to the best of my ability. This discharge took greater then 30 minutes in planning, reviewing documentation, counseling the patient, and discussing with other team members." ASSESSMENT ASSESSMENT Hospital Course Improved Assessment Acute metabolic encephalopathy resolved CT head negative Acute dehydration: Resolved History of methamphetamine abuse: Urine drug screen negative CT head negative Blood alcohol level negative Date of Service: Dec 25, 2024 Billing Provider: PATRICIA ARGUETA MD Common Visit Codes: [id number] DISCH DAY >30min PATRICIA ARGUETA MD Dec 25, 2024 12:58
[2024-12-25 13:00] VITALS: BP 147/87; PULSE 65; RESP 17; TEMP 98.5; O2SAT 95
[2024-12-25 13:33] VITALS: BP 142/88; PULSE 65; RESP 17; TEMP 98.4; O2SAT 95
== END 2024-12-25 15:00 | disposition home or self-care (01) | DRG 422 ==
LOC: EDBD 04:52 → ER 04:52 → OVERFLOW 09:25 → TELE 20:40 → TELE-WESTW 12-22 16:23
PROVIDERS: ADMIT Family Medicine; ATTEND Family Medicine
DX: E86.0 Dehydration (principal); N17.0 Acute kidney failure with tubular necrosis; G93.41 Metabolic encephalopathy; F15.90 Other stimulant use, unspecified, uncomplicated; Z59.00 Homelessness unspecified; Z79.899 Other long term (current) drug therapy; D63.8 Anemia in other chronic diseases classified elsewhere
CPT/HCPCS: 36415; 70450; 71045; 80053; 80307; 80320; 81001; 82570; 83605; 84300; 84443; 84484; 85025; 86360; 86592; 87086; G0378